=== PATIENT | male | born 1945 | race Hispanic/Latino ===

== ENCOUNTER 2020-06-04 10:53 | Inpatient (IN) | payer MEDICARE ==
[2020-06-05] MEDS: Atorvastatin Calcium 40 MG TAB PO SCH (20:54)
[2020-06-05] MEDS: Enoxaparin Sodium 40 MG/0.4 ML SYRINGE SC SCH (20:54)
[2020-06-05] MEDS: Zolpidem Tartrate 5 MG TAB PO PRN (20:54)
[2020-06-06] MEDS: Lisinopril 5 MG TAB PO SCH (08:13)
[2020-06-06] MEDS: Dexamethasone 4 MG TAB PO SCH (08:15)
[2020-06-06] MEDS: Aspirin 81 mg Enteric Coated Tablet PO SCH (08:16)
[2020-06-06] MEDS: Folic Acid 1 MG TAB PO SCH (08:16)
[2020-06-06] MEDS: Multivitamin W/ Minerals 1 TAB PO SCH (08:17)
[2020-06-06] MEDS ORDERED: FLU VACC QS2020-21(65YR UP)/PF 240 MCG/0.7 ML SYRINGE IM ONE (09:00)
[2020-06-06] MEDS: Atorvastatin Calcium 40 MG TAB PO SCH (21:16)
[2020-06-06] MEDS: Melatonin 3 MG TAB PO PRN (21:16)
[2020-06-06] MEDS: Enoxaparin Sodium 40 MG/0.4 ML SYRINGE SC SCH (21:17)
[2020-06-06] MEDS: Zolpidem Tartrate 5 MG TAB PO PRN (23:48)
[2020-06-07 05:10] LABS: #Lymphocytes 1.5 thou/uL (1.20-3.40); #Monocytes 1.2 thou/uL (0.11-0.59); #Neutrophils 10.1 thou/uL (1.40-6.50); %Basophils 0.3 % (0.0-1.0); %Eosinophils 0.1 % (0.0-10.0); %Lymphocytes 11.5 % (21.0-51.0); %Monocytes 9.4 % (0.0-10.0); %Neutrophils 78.6 % (42.0-75.0); Hemoglobin 18.1 g/dL (14.0-18.0); Mean Corpuscular HGB CONC 34.6 g/dL (32.0-36.0); Mean Corpuscular Hemoglobin 30.4 pg (27.0-31.0); Mean Corpuscular Volume 87.9 fL (78.0-98.0); Mean Platelet Volume 6.2 fL (7.4-10.4); Platelet Count 304 thou/uL (130-400); RBC Distribution Width 11.6 % (11.5-14.5); Red Blood Cell (RBC) Count 5.95 mill/uL (4.70-6.10); White Blood Cell (WBC) Count 12.8 thou/uL (4.8-10.8)
[2020-06-07 05:54] LABS: ALT (SGPT) 210 U/L (8-55); AST (SGOT) 164 U/L (5-34); Albumin 2.8 g/dL (3.4-4.8); Alkaline Phosphatase 206 U/L (40-110); Anion Gap 12 mmol/L (10-20); BUN (Urea Nitrogen) 29 mg/dL (8.4-25.7); Bilirubin, Total 1.1 mg/dL (0.2-1.2); Calc. Creatinine Clearance 73 mL/min (70-130); Calcium 8.9 mg/dL (7.8-10.44); Carbon Dioxide 26 mmol/L (23-31); Chloride 106 mmol/L (98-107); Globulin 4.3 g/dL (2.4-3.5); Glucose 96 mg/dL (83-110); Potassium 3.8 mmol/L (3.5-5.1); Protein, Total 7.1 g/dL (5.8-8.1); Sodium 140 mmol/L (136-145)
[2020-06-07] MEDS ORDERED: Sodium Chloride 0.9% 1,000 ML IV SCH (08:00)
[2020-06-07] MEDS: Dexamethasone 4 MG TAB PO SCH (09:16)
[2020-06-07] MEDS: Lisinopril 5 MG TAB PO SCH (09:17)
[2020-06-07] MEDS: Aspirin 81 mg Enteric Coated Tablet PO SCH (09:17)
[2020-06-07] MEDS: Multivitamin W/ Minerals 1 TAB PO SCH (09:17)
[2020-06-07] MEDS: Folic Acid 1 MG TAB PO SCH (09:17)
[2020-06-07 14:57] VITALS: BMI 20.1
[2020-06-07] MEDS: Enoxaparin Sodium 40 MG/0.4 ML SYRINGE SC SCH (20:41)
[2020-06-07] MEDS: Atorvastatin Calcium 40 MG TAB PO SCH (20:41)
[2020-06-07] MEDS: Melatonin 3 MG TAB PO PRN (20:41)
[2020-06-08] MEDS: Zolpidem Tartrate 5 MG TAB PO PRN (01:22)
[2020-06-08] MEDS: Multivitamin W/ Minerals 1 TAB PO SCH (08:16)
[2020-06-08] MEDS: Lisinopril 5 MG TAB PO SCH (08:16)
[2020-06-08] MEDS: Aspirin 81 mg Enteric Coated Tablet PO SCH (08:18)
[2020-06-08] MEDS: Folic Acid 1 MG TAB PO SCH (08:18)
[2020-06-08] MEDS: Melatonin 3 MG TAB PO PRN (20:58)
[2020-06-08] MEDS: Enoxaparin Sodium 40 MG/0.4 ML SYRINGE SC SCH (20:58)
[2020-06-08] MEDS: Atorvastatin Calcium 40 MG TAB PO SCH (20:58)
[2020-06-09] MEDS: Zolpidem Tartrate 5 MG TAB PO PRN ×2 (00:17→23:54)
[2020-06-09] MEDS: Aspirin 81 mg Enteric Coated Tablet PO SCH (07:50)
[2020-06-09] MEDS: Lisinopril 5 MG TAB PO SCH (07:50)
[2020-06-09] MEDS: Folic Acid 1 MG TAB PO SCH (07:50)
[2020-06-09] MEDS: Multivitamin W/ Minerals 1 TAB PO SCH (07:52)
[2020-06-09] MEDS: Enoxaparin Sodium 40 MG/0.4 ML SYRINGE SC SCH (20:27)
[2020-06-09] MEDS: Melatonin 3 MG TAB PO PRN (20:27)
[2020-06-09] MEDS: Atorvastatin Calcium 40 MG TAB PO SCH (20:28)
[2020-06-10 05:46] LABS: ALT (SGPT) 207 U/L (8-55); AST (SGOT) 141 U/L (5-34); Albumin 2.6 g/dL (3.4-4.8); Alkaline Phosphatase 192 U/L (40-110); Anion Gap 10 mmol/L (10-20); BUN (Urea Nitrogen) 18 mg/dL (8.4-25.7); Calc. Creatinine Clearance 73 mL/min (70-130); Calcium 8.4 mg/dL (7.8-10.44); Carbon Dioxide 25 mmol/L (23-31); Chloride 104 mmol/L (98-107); Globulin 3.9 g/dL (2.4-3.5); Glucose 86 mg/dL (83-110); Potassium 4.2 mmol/L (3.5-5.1); Protein, Total 6.5 g/dL (5.8-8.1); Sodium 135 mmol/L (136-145)
[2020-06-10 05:52] LABS: #Basophils 0.1 thou/uL (0.0-0.2); #Eosinphils 0.1 thou/uL (0.0-0.7); #Lymphocytes 1.7 thou/uL (1.20-3.40); #Neutrophils 6.3 thou/uL (1.40-6.50); %Eosinophils 1.5 % (0.0-10.0); %Lymphocytes 18.3 % (21.0-51.0); %Monocytes 10.4 % (0.0-10.0); %Neutrophils 68.8 % (42.0-75.0); Mean Corpuscular HGB CONC 33.4 g/dL (32.0-36.0); Mean Corpuscular Hemoglobin 29.9 pg (27.0-31.0); Mean Corpuscular Volume 89.5 fL (78.0-98.0); Mean Platelet Volume 6.4 fL (7.4-10.4); Platelet Count 271 thou/uL (130-400); RBC Distribution Width 11.9 % (11.5-14.5); Red Blood Cell (RBC) Count 6.01 mill/uL (4.70-6.10); White Blood Cell (WBC) Count 9.2 thou/uL (4.8-10.8)
[2020-06-10] MEDS: Folic Acid 1 MG TAB PO SCH (08:33)
[2020-06-10] MEDS: Lisinopril 5 MG TAB PO SCH (08:33)
[2020-06-10] MEDS: Aspirin 81 mg Enteric Coated Tablet PO SCH (08:33)
[2020-06-10] MEDS: Multivitamin W/ Minerals 1 TAB PO SCH (08:34)
[2020-06-10] MEDS ORDERED: Polyethylene Glycol 3350 17 GM Packet PO SCH (10:00)
[2020-06-10] MEDS ORDERED: Iopamidol 370 76% 100 ML VIAL ONE (12:38)
[2020-06-10] MEDS: Enoxaparin Sodium 40 MG/0.4 ML SYRINGE SC SCH (20:10)
[2020-06-10] MEDS: Atorvastatin Calcium 40 MG TAB PO SCH (20:10)
[2020-06-10] MEDS: Zolpidem Tartrate 5 MG TAB PO PRN (23:17)
[2020-06-11] MEDS: Folic Acid 1 MG TAB PO SCH (08:35)
[2020-06-11] MEDS: Polyethylene Glycol 3350 17 GM Packet PO SCH (08:35)
[2020-06-11] MEDS: Aspirin 81 mg Enteric Coated Tablet PO SCH (08:35)
[2020-06-11] MEDS: Multivitamin W/ Minerals 1 TAB PO SCH (08:35)
[2020-06-11] MEDS: Lisinopril 5 MG TAB PO SCH (08:35)
[2020-06-11] MEDS ORDERED: Bisacodyl 10 MG SUPP PR PRN (15:15)
[2020-06-11] MEDS: Atorvastatin Calcium 40 MG TAB PO SCH (21:24)
[2020-06-11] MEDS: Senokot S 8.6-50 MG TAB PO SCH (21:24)
[2020-06-11] MEDS: Enoxaparin Sodium 40 MG/0.4 ML SYRINGE SC SCH (21:24)
[2020-06-11] MEDS: Zolpidem Tartrate 5 MG TAB PO PRN (23:54)
[2020-06-12] MEDS: Aspirin 81 mg Enteric Coated Tablet PO SCH (08:52)
[2020-06-12] MEDS: Folic Acid 1 MG TAB PO SCH (08:52)
[2020-06-12] MEDS: Lisinopril 5 MG TAB PO SCH (08:53)
[2020-06-12] MEDS: Senokot S 8.6-50 MG TAB PO SCH ×2 (08:53→20:17)
[2020-06-12] MEDS: Polyethylene Glycol 3350 17 GM Packet PO SCH (08:54)
[2020-06-12] MEDS: Multivitamin W/ Minerals 1 TAB PO SCH (08:55)
[2020-06-12] MEDS: Atorvastatin Calcium 40 MG TAB PO SCH (20:17)
[2020-06-12] MEDS: Enoxaparin Sodium 40 MG/0.4 ML SYRINGE SC SCH (20:18)
[2020-06-12] MEDS: Zolpidem Tartrate 5 MG TAB PO PRN (22:18)
[2020-06-13 05:20] LABS: Hemoglobin 16.8 g/dL (14.0-18.0); Platelet Count 219 thou/uL (130-400)
[2020-06-13 05:42] LABS: Calc. Creatinine Clearance 70 mL/min (70-130)
[2020-06-13] MEDS: Senokot S 8.6-50 MG TAB PO SCH ×2 (09:14→21:41)
[2020-06-13] MEDS: Aspirin 81 mg Enteric Coated Tablet PO SCH (09:14)
[2020-06-13] MEDS: Lisinopril 5 MG TAB PO SCH (09:15)
[2020-06-13] MEDS: Multivitamin W/ Minerals 1 TAB PO SCH (09:15)
[2020-06-13] MEDS: Folic Acid 1 MG TAB PO SCH (09:15)
[2020-06-13] MEDS: Polyethylene Glycol 3350 17 GM Packet PO SCH (09:16)
[2020-06-13] MEDS: Atorvastatin Calcium 40 MG TAB PO SCH (21:41)
[2020-06-13] MEDS: Enoxaparin Sodium 40 MG/0.4 ML SYRINGE SC SCH (21:42)
[2020-06-13] MEDS: Zolpidem Tartrate 5 MG TAB PO PRN (21:53)
[2020-06-14] MEDS: Aspirin 81 mg Enteric Coated Tablet PO SCH (08:50)
[2020-06-14] MEDS: Folic Acid 1 MG TAB PO SCH (08:51)
[2020-06-14] MEDS: Lisinopril 5 MG TAB PO SCH (08:51)
[2020-06-14] MEDS: Multivitamin W/ Minerals 1 TAB PO SCH (08:52)
[2020-06-14] MEDS: Polyethylene Glycol 3350 17 GM Packet PO SCH (08:52)
[2020-06-14] MEDS: Senokot S 8.6-50 MG TAB PO SCH ×2 (08:52→20:14)
[2020-06-14] MEDS: Atorvastatin Calcium 40 MG TAB PO SCH (20:14)
[2020-06-14] MEDS: Enoxaparin Sodium 40 MG/0.4 ML SYRINGE SC SCH (20:14)
[2020-06-14] MEDS: Zolpidem Tartrate 5 MG TAB PO PRN (22:23)
[2020-06-15] MEDS: Aspirin 81 mg Enteric Coated Tablet PO SCH (08:22)
[2020-06-15] MEDS: Folic Acid 1 MG TAB PO SCH (08:22)
[2020-06-15] MEDS: Senokot S 8.6-50 MG TAB PO SCH ×2 (08:22→20:51)
[2020-06-15] MEDS: Polyethylene Glycol 3350 17 GM Packet PO SCH (08:22)
[2020-06-15] MEDS: Multivitamin W/ Minerals 1 TAB PO SCH (08:22)
[2020-06-15] MEDS: Lisinopril 5 MG TAB PO SCH (08:23)
[2020-06-15] MEDS: Atorvastatin Calcium 40 MG TAB PO SCH (20:51)
[2020-06-15] MEDS: Enoxaparin Sodium 40 MG/0.4 ML SYRINGE SC SCH (20:51)
[2020-06-15] MEDS: Zolpidem Tartrate 5 MG TAB PO PRN (23:18)
[2020-06-16 06:25] LABS: Hemoglobin 17.7 g/dL (14.0-18.0); Platelet Count 159 thou/uL (130-400)
[2020-06-16 06:36] LABS: Calc. Creatinine Clearance 77 mL/min (70-130)
[2020-06-16] MEDS: Polyethylene Glycol 3350 17 GM Packet PO SCH (08:36)
[2020-06-16] MEDS: Lisinopril 5 MG TAB PO SCH (08:38)
[2020-06-16] MEDS: Senokot S 8.6-50 MG TAB PO SCH ×2 (08:38→21:00)
[2020-06-16] MEDS: Aspirin 81 mg Enteric Coated Tablet PO SCH (08:38)
[2020-06-16] MEDS: Multivitamin W/ Minerals 1 TAB PO SCH (08:39)
[2020-06-16] MEDS: Folic Acid 1 MG TAB PO SCH (08:39)
[2020-06-16] MEDS: Atorvastatin Calcium 40 MG TAB PO SCH (21:00)
[2020-06-16] MEDS ORDERED: Enoxaparin Sodium 100 MG/ML SYRINGE SC SCH (21:00)
[2020-06-16] MEDS: Zolpidem Tartrate 5 MG TAB PO PRN (21:52)
[2020-06-17 05:37] LABS: #Basophils 0.1 thou/uL (0.0-0.2); #Eosinphils 0.3 thou/uL (0.0-0.7); #Lymphocytes 1.8 thou/uL (1.20-3.40); #Monocytes 0.8 thou/uL (0.11-0.59); #Neutrophils 5.2 thou/uL (1.40-6.50); %Basophils 1.3 % (0.0-1.0); %Eosinophils 3.8 % (0.0-10.0); %Lymphocytes 21.3 % (21.0-51.0); %Neutrophils 63.6 % (42.0-75.0); Hemoglobin 16.6 g/dL (14.0-18.0); Mean Corpuscular HGB CONC 34.7 g/dL (32.0-36.0); Mean Corpuscular Hemoglobin 30.4 pg (27.0-31.0); Mean Corpuscular Volume 87.7 fL (78.0-98.0); Mean Platelet Volume 6.1 fL (7.4-10.4); Platelet Count 179 thou/uL (130-400); Red Blood Cell (RBC) Count 5.46 mill/uL (4.70-6.10); White Blood Cell (WBC) Count 8.2 thou/uL (4.8-10.8)
[2020-06-17 05:41] LABS: ALT (SGPT) 56 U/L (8-55); AST (SGOT) 43 U/L (5-34); Albumin 2.7 g/dL (3.4-4.8); Alkaline Phosphatase 150 U/L (40-110); Anion Gap 15 mmol/L (10-20); BUN (Urea Nitrogen) 20 mg/dL (8.4-25.7); Bilirubin, Total 1.2 mg/dL (0.2-1.2); Calc. Creatinine Clearance 73 mL/min (70-130); Calcium 8.8 mg/dL (7.8-10.44); Carbon Dioxide 25 mmol/L (23-31); Chloride 101 mmol/L (98-107); Globulin 4.2 g/dL (2.4-3.5); Glucose 86 mg/dL (83-110); Potassium 3.6 mmol/L (3.5-5.1); Protein, Total 6.9 g/dL (5.8-8.1); Sodium 137 mmol/L (136-145)
[2020-06-17] MEDS: Folic Acid 1 MG TAB PO SCH (09:30)
[2020-06-17] MEDS: Aspirin 81 mg Enteric Coated Tablet PO SCH (09:30)
[2020-06-17] MEDS: Lisinopril 5 MG TAB PO SCH (09:30)
[2020-06-17] MEDS: Polyethylene Glycol 3350 17 GM Packet PO SCH (09:30)
[2020-06-17] MEDS: Senokot S 8.6-50 MG TAB PO SCH ×2 (09:30→20:57)
[2020-06-17] MEDS: Multivitamin W/ Minerals 1 TAB PO SCH (09:30)
[2020-06-17] MEDS: Atorvastatin Calcium 40 MG TAB PO SCH (20:57)
[2020-06-17] MEDS: Enoxaparin Sodium 40 MG/0.4 ML SYRINGE SC SCH (21:02)
[2020-06-17] MEDS: Zolpidem Tartrate 5 MG TAB PO PRN (22:08)
[2020-06-18] MEDS: Lisinopril 5 MG TAB PO SCH (08:40)
[2020-06-18] MEDS: Aspirin 81 mg Enteric Coated Tablet PO SCH (08:40)
[2020-06-18] MEDS: Polyethylene Glycol 3350 17 GM Packet PO SCH (08:40)
[2020-06-18] MEDS: Senokot S 8.6-50 MG TAB PO SCH ×2 (08:40→20:20)
[2020-06-18] MEDS: Multivitamin W/ Minerals 1 TAB PO SCH (08:41)
[2020-06-18] MEDS: Megestrol Acetate 40 MG TAB PO SCH ×2 (08:41→20:20)
[2020-06-18] MEDS: Folic Acid 1 MG TAB PO SCH (08:42)
[2020-06-18] MEDS: Ibuprofen 600 MG TAB PO PRN (18:22)
[2020-06-18] MEDS: Atorvastatin Calcium 40 MG TAB PO SCH (20:20)
[2020-06-18] MEDS: Enoxaparin Sodium 40 MG/0.4 ML SYRINGE SC SCH (20:20)
[2020-06-18] MEDS: Zolpidem Tartrate 5 MG TAB PO PRN (23:40)
[2020-06-19 04:51] LABS: Hemoglobin 16.3 g/dL (14.0-18.0); Platelet Count 177 thou/uL (130-400)
[2020-06-19 05:07] LABS: Calc. Creatinine Clearance 65 mL/min (70-130)
[2020-06-19] MEDS: Aspirin 81 mg Enteric Coated Tablet PO SCH (08:42)
[2020-06-19] MEDS: Polyethylene Glycol 3350 17 GM Packet PO SCH (08:42)
[2020-06-19] MEDS: Lisinopril 5 MG TAB PO SCH (08:42)
[2020-06-19] MEDS: Senokot S 8.6-50 MG TAB PO SCH ×2 (08:42→20:27)
[2020-06-19] MEDS: Folic Acid 1 MG TAB PO SCH (08:49)
[2020-06-19] MEDS: Megestrol Acetate 40 MG TAB PO SCH ×2 (08:49→20:27)
[2020-06-19] MEDS: Multivitamin W/ Minerals 1 TAB PO SCH (08:49)
[2020-06-19] MEDS: Ibuprofen 600 MG TAB PO PRN (12:24)
[2020-06-19] MEDS: Atorvastatin Calcium 40 MG TAB PO SCH (20:27)
[2020-06-19] MEDS: Enoxaparin Sodium 40 MG/0.4 ML SYRINGE SC SCH (20:28)
[2020-06-19] MEDS: Zolpidem Tartrate 5 MG TAB PO PRN (23:18)
[2020-06-20] MEDS: Ibuprofen 600 MG TAB PO PRN ×3 (02:12→20:38)
[2020-06-20] MEDS: Aspirin 81 mg Enteric Coated Tablet PO SCH (09:00)
[2020-06-20] MEDS: Folic Acid 1 MG TAB PO SCH (09:00)
[2020-06-20] MEDS: Polyethylene Glycol 3350 17 GM Packet PO SCH (09:00)
[2020-06-20] MEDS: Megestrol Acetate 40 MG TAB PO SCH ×2 (09:00→20:38)
[2020-06-20] MEDS: Lisinopril 5 MG TAB PO SCH (09:01)
[2020-06-20] MEDS: Multivitamin W/ Minerals 1 TAB PO SCH (09:01)
[2020-06-20] MEDS: Senokot S 8.6-50 MG TAB PO SCH ×2 (09:05→20:38)
[2020-06-20] MEDS: Atorvastatin Calcium 40 MG TAB PO SCH (20:38)
[2020-06-20] MEDS: Enoxaparin Sodium 40 MG/0.4 ML SYRINGE SC SCH (20:39)
[2020-06-21] MEDS: Zolpidem Tartrate 5 MG TAB PO PRN (01:47)
[2020-06-21] MEDS: Aspirin 81 mg Enteric Coated Tablet PO SCH (08:44)
[2020-06-21] MEDS: Polyethylene Glycol 3350 17 GM Packet PO SCH (08:44)
[2020-06-21] MEDS: Fluconazole 100 MG TAB PO SCH (08:44)
[2020-06-21] MEDS: Megestrol Acetate 40 MG TAB PO SCH ×2 (08:45→21:15)
[2020-06-21] MEDS: Multivitamin W/ Minerals 1 TAB PO SCH (08:45)
[2020-06-21] MEDS: Lisinopril 5 MG TAB PO SCH (08:45)
[2020-06-21] MEDS: Folic Acid 1 MG TAB PO SCH (08:45)
[2020-06-21] MEDS: Senokot S 8.6-50 MG TAB PO SCH ×2 (08:45→21:15)
[2020-06-21] MEDS: Nystatin Cream 15 GM TUBE TOP SCH ×2 (08:46→21:16)
[2020-06-21] MEDS: Ibuprofen 600 MG TAB PO PRN (11:28)
[2020-06-21 13:30] LABS: Bilirubin Moderate (Negative); Blood, Urine Negative (Negative); Clarity Cloudy (Clear); Glucose, Urine (Dipstick) 100 mg/dL (Negative); Ketone, Urine Trace mg/dL (Negative); Leukocyte Small (Negative); Nitrite Negative (Negative); Protein, Urine (Dipstick) 30 mg/dL (Neg-Trace); Urobilinogen > or = 8.0 mg/dL (Less than 2); pH, Urine 5.5 (5.0-9.0)
[2020-06-21 13:38] LABS: RBC/HPF 0-3 HPF (0-3); Squamous Epithelial 0-3 HPF (0-3)
[2020-06-21 13:39] LABS: Bacteria/HPF 2+ HPF (None Seen)
[2020-06-21 13:40] LABS: Urine Culture Reflex Yes Yes
[2020-06-21] MEDS: Enoxaparin Sodium 40 MG/0.4 ML SYRINGE SC SCH (21:15)
[2020-06-21] MEDS: Melatonin 3 MG TAB PO PRN (21:15)
[2020-06-21] MEDS: Atorvastatin Calcium 40 MG TAB PO SCH (21:15)
[2020-06-22] MEDS: Zolpidem Tartrate 5 MG TAB PO PRN (00:34)
[2020-06-22 05:41] LABS: Hemoglobin 17.3 g/dL (14.0-18.0); Platelet Count 196 thou/uL (130-400)
[2020-06-22] MEDS: Multivitamin W/ Minerals 1 TAB PO SCH (09:28)
[2020-06-22] MEDS: Aspirin 81 mg Enteric Coated Tablet PO SCH (09:28)
[2020-06-22] MEDS: Folic Acid 1 MG TAB PO SCH (09:29)
[2020-06-22] MEDS: Fluconazole 100 MG TAB PO SCH (09:29)
[2020-06-22] MEDS: Senokot S 8.6-50 MG TAB PO SCH ×2 (09:29→22:02)
[2020-06-22] MEDS: Polyethylene Glycol 3350 17 GM Packet PO SCH (09:29)
[2020-06-22] MEDS: Megestrol Acetate 40 MG TAB PO SCH ×2 (09:29→22:02)
[2020-06-22] MEDS: Nystatin Cream 15 GM TUBE TOP SCH ×2 (09:30→22:04)
[2020-06-22] MEDS: Lisinopril 5 MG TAB PO SCH (09:30)
[2020-06-22] MEDS: Atorvastatin Calcium 40 MG TAB PO SCH (22:02)
[2020-06-22] MEDS: Enoxaparin Sodium 40 MG/0.4 ML SYRINGE SC SCH (22:02)
[2020-06-22] MEDS: Melatonin 3 MG TAB PO PRN (22:02)
[2020-06-23] MEDS: Zolpidem Tartrate 5 MG TAB PO PRN (00:58)
[2020-06-23] MEDS: Senokot S 8.6-50 MG TAB PO SCH ×2 (08:47→21:19)
[2020-06-23] MEDS: Multivitamin W/ Minerals 1 TAB PO SCH (08:47)
[2020-06-23] MEDS: Polyethylene Glycol 3350 17 GM Packet PO SCH (08:47)
[2020-06-23] MEDS: Lisinopril 5 MG TAB PO SCH (08:48)
[2020-06-23] MEDS: Folic Acid 1 MG TAB PO SCH (08:49)
[2020-06-23] MEDS: Nystatin Cream 15 GM TUBE TOP SCH ×2 (08:49→21:20)
[2020-06-23] MEDS: Aspirin 81 mg Enteric Coated Tablet PO SCH (08:49)
[2020-06-23] MEDS: Megestrol Acetate 40 MG TAB PO SCH ×2 (08:49→21:19)
[2020-06-23] MEDS: Fluconazole 100 MG TAB PO SCH (08:49)
[2020-06-23] MEDS: Sodium Chloride 0.9% 1,000 ML IV SCH ×4 (13:35→21:19)
[2020-06-23] MEDS: Sulfameth/Trimethoprim DS 800-160mg TAB PO SCH ×2 (13:36→21:19)
[2020-06-23] MEDS: Melatonin 3 MG TAB PO PRN (21:19)
[2020-06-23] MEDS: Atorvastatin Calcium 40 MG TAB PO SCH (21:19)
[2020-06-23] MEDS: Enoxaparin Sodium 40 MG/0.4 ML SYRINGE SC SCH (21:19)
[2020-06-24] MEDS: Zolpidem Tartrate 5 MG TAB PO PRN ×2 (01:02→21:32)
[2020-06-24] MEDS: Sodium Chloride 0.9% 1,000 ML IV SCH ×2 (08:00→18:32)
[2020-06-24] MEDS ORDERED: Fluconazole 100 MG TAB ONE (08:43)
[2020-06-24] MEDS ORDERED: Sulfameth/Trimethoprim DS 800-160mg TAB ONE (08:43)
[2020-06-24] MEDS ORDERED: Aspirin 81 mg Enteric Coated Tablet ONE (08:44)
[2020-06-24] MEDS ORDERED: Atorvastatin Calcium 40 MG TAB ONE (08:44)
[2020-06-24] MEDS ORDERED: Folic Acid 1 MG TAB ONE (08:44)
[2020-06-24] MEDS ORDERED: Enoxaparin Sodium 40 MG/0.4 ML SYRINGE ONE (08:45)
[2020-06-24] MEDS ORDERED: Polyethylene Glycol 3350 17 GM Packet ONE (08:45)
[2020-06-24] MEDS ORDERED: Megestrol Acetate 40 MG TAB ONE (08:45)
[2020-06-24] MEDS ORDERED: Senokot S 8.6-50 MG TAB ONE (08:49)
[2020-06-24] MEDS ORDERED: Lisinopril 5 MG TAB ONE (08:50)
[2020-06-24] MEDS ORDERED: Multivitamin W/ Minerals 1 TAB ONE (08:50)
[2020-06-24] MEDS: Senokot S 8.6-50 MG TAB PO SCH ×2 (09:30→20:20)
[2020-06-24] MEDS: Folic Acid 1 MG TAB PO SCH (09:30)
[2020-06-24] MEDS: Polyethylene Glycol 3350 17 GM Packet PO SCH (09:30)
[2020-06-24] MEDS: Nystatin Cream 15 GM TUBE TOP SCH ×2 (09:30→20:20)
[2020-06-24] MEDS: Sulfameth/Trimethoprim DS 800-160mg TAB PO SCH ×2 (09:30→20:18)
[2020-06-24] MEDS: Aspirin 81 mg Enteric Coated Tablet PO SCH (09:30)
[2020-06-24] MEDS: Lisinopril 5 MG TAB PO SCH (09:30)
[2020-06-24] MEDS: Multivitamin W/ Minerals 1 TAB PO SCH (09:30)
[2020-06-24] MEDS: Megestrol Acetate 40 MG TAB PO SCH ×2 (09:30→20:19)
[2020-06-24] MEDS: Fluconazole 100 MG TAB PO SCH (09:30)
[2020-06-24 14:17] LABS: Anion Gap 14 mmol/L (10-20); BUN (Urea Nitrogen) 29 mg/dL (8.4-25.7); Calc. Creatinine Clearance 46 mL/min (70-130); Carbon Dioxide 22 mmol/L (23-31); Chloride 104 mmol/L (98-107); Potassium 3.6 mmol/L (3.5-5.1); Sodium 136 mmol/L (136-145)
[2020-06-24 14:18] LABS: Calcium 8.4 mg/dL (7.8-10.44); Glucose 75 mg/dL (83-110)
[2020-06-24 14:20] LABS: Albumin 2.5 g/dL (3.4-4.8); Bilirubin, Total 1.4 mg/dL (0.2-1.2); Protein, Total 6.5 g/dL (5.8-8.1)
[2020-06-24 14:21] LABS: ALT (SGPT) 76 U/L (8-55); AST (SGOT) 65 U/L (5-34); Alkaline Phosphatase 262 U/L (40-110)
[2020-06-24 14:22] LABS: Hemoglobin 16.1 g/dL (14.0-18.0); Mean Corpuscular HGB CONC 32.8 g/dL (32.0-36.0); Mean Corpuscular Hemoglobin 29.2 pg (27.0-31.0); Mean Corpuscular Volume 88.8 fL (78.0-98.0); Red Blood Cell (RBC) Count 5.52 mill/uL (4.70-6.10); White Blood Cell (WBC) Count 7.1 thou/uL (4.8-10.8)
[2020-06-24 14:23] LABS: %Lymphocytes 29.7 % (21.0-51.0); %Monocytes 8.5 % (0.0-10.0); %Neutrophils 54.5 % (42.0-75.0); Manual Diff?? YES; Platelet Count 214 thou/uL (130-400); RBC Distribution Width 12.7 % (11.5-14.5)
[2020-06-24 14:24] LABS: #Basophils 0.1 thou/uL (0.0-0.2); #Eosinphils 0.4 thou/uL (0.0-0.7); #Monocytes 0.6 thou/uL (0.11-0.59); #Neutrophils 3.9 thou/uL (1.40-6.50); %Basophils 1.3 % (0.0-1.0); MDiff Complete? YES
[2020-06-24 14:40] LABS: #Lymphocytes 2.1 thou/uL (1.20-3.40); Mean Platelet Volume 6.6 fL (7.4-10.4)
[2020-06-24] MEDS: Atorvastatin Calcium 40 MG TAB PO SCH (20:18)
[2020-06-24] MEDS: Enoxaparin Sodium 40 MG/0.4 ML SYRINGE SC SCH (20:19)
[2020-06-25] MEDS: Sodium Chloride 0.9% 1,000 ML IV SCH ×2 (04:55→17:38)
[2020-06-25 05:06] LABS: Hemoglobin 14.2 g/dL (14.0-18.0); Platelet Count 201 thou/uL (130-400)
[2020-06-25 05:13] LABS: Calc. Creatinine Clearance 64 mL/min (70-130)
[2020-06-25] MEDS: Polyethylene Glycol 3350 17 GM Packet PO SCH (08:30)
[2020-06-25] MEDS: Senokot S 8.6-50 MG TAB PO SCH ×2 (08:31→20:40)
[2020-06-25] MEDS: Folic Acid 1 MG TAB PO SCH (08:32)
[2020-06-25] MEDS: Aspirin 81 mg Enteric Coated Tablet PO SCH (08:32)
[2020-06-25] MEDS: Megestrol Acetate 40 MG TAB PO SCH ×2 (08:32→20:40)
[2020-06-25] MEDS: Sulfameth/Trimethoprim DS 800-160mg TAB PO SCH ×2 (08:32→20:40)
[2020-06-25] MEDS: Fluconazole 100 MG TAB PO SCH (08:33)
[2020-06-25] MEDS: Lisinopril 5 MG TAB PO SCH (08:33)
[2020-06-25] MEDS: Multivitamin W/ Minerals 1 TAB PO SCH (08:33)
[2020-06-25] MEDS: Nystatin Cream 15 GM TUBE TOP SCH ×2 (10:37→20:42)
[2020-06-25] MEDS: Atorvastatin Calcium 40 MG TAB PO SCH (20:40)
[2020-06-25] MEDS: Enoxaparin Sodium 40 MG/0.4 ML SYRINGE SC SCH (20:41)
[2020-06-26] MEDS: Zolpidem Tartrate 5 MG TAB PO PRN ×2 (00:27→23:22)
[2020-06-26] MEDS: Lisinopril 5 MG TAB PO SCH (08:53)
[2020-06-26] MEDS: Sulfameth/Trimethoprim DS 800-160mg TAB PO SCH ×2 (08:53→21:39)
[2020-06-26] MEDS: Megestrol Acetate 40 MG TAB PO SCH ×2 (08:53→21:39)
[2020-06-26] MEDS: Multivitamin W/ Minerals 1 TAB PO SCH (08:53)
[2020-06-26] MEDS: Aspirin 81 mg Enteric Coated Tablet PO SCH (08:53)
[2020-06-26] MEDS: Polyethylene Glycol 3350 17 GM Packet PO SCH (08:54)
[2020-06-26] MEDS: Nystatin Cream 15 GM TUBE TOP SCH ×2 (08:54→21:41)
[2020-06-26] MEDS: Senokot S 8.6-50 MG TAB PO SCH ×2 (08:54→21:41)
[2020-06-26] MEDS: Folic Acid 1 MG TAB PO SCH (08:54)
[2020-06-26] MEDS: Fluconazole 100 MG TAB PO SCH (08:54)
[2020-06-26] MEDS: Melatonin 3 MG TAB PO PRN (21:40)
[2020-06-26] MEDS: Atorvastatin Calcium 40 MG TAB PO SCH (21:40)
[2020-06-26] MEDS: Enoxaparin Sodium 40 MG/0.4 ML SYRINGE SC SCH (21:40)
[2020-06-27] MEDS: Lisinopril 5 MG TAB PO SCH (09:17)
[2020-06-27] MEDS: Polyethylene Glycol 3350 17 GM Packet PO SCH (09:17)
[2020-06-27] MEDS: Aspirin 81 mg Enteric Coated Tablet PO SCH (09:17)
[2020-06-27] MEDS: Multivitamin W/ Minerals 1 TAB PO SCH (09:17)
[2020-06-27] MEDS: Sulfameth/Trimethoprim DS 800-160mg TAB PO SCH ×2 (09:17→21:09)
[2020-06-27] MEDS: Fluconazole 100 MG TAB PO SCH (09:18)
[2020-06-27] MEDS: Megestrol Acetate 40 MG TAB PO SCH ×2 (09:18→21:09)
[2020-06-27] MEDS: Folic Acid 1 MG TAB PO SCH (09:18)
[2020-06-27] MEDS: Senokot S 8.6-50 MG TAB PO SCH ×2 (09:19→21:13)
[2020-06-27] MEDS: Nystatin Cream 15 GM TUBE TOP SCH ×2 (09:19→21:10)
[2020-06-27] MEDS: Enoxaparin Sodium 40 MG/0.4 ML SYRINGE SC SCH (21:08)
[2020-06-27] MEDS: Atorvastatin Calcium 40 MG TAB PO SCH ×2 (21:09→21:14)
[2020-06-27] MEDS: Zolpidem Tartrate 5 MG TAB PO PRN (23:04)
[2020-06-28 05:30] LABS: Calc. Creatinine Clearance 68 mL/min (70-130)
[2020-06-28 05:51] LABS: Hemoglobin 13.9 g/dL (14.0-18.0); Platelet Count 231 thou/uL (130-400)
[2020-06-28] MEDS: Polyethylene Glycol 3350 17 GM Packet PO SCH (10:23)
[2020-06-28] MEDS: Lisinopril 5 MG TAB PO SCH (10:24)
[2020-06-28] MEDS: Sulfameth/Trimethoprim DS 800-160mg TAB PO SCH ×2 (10:25→20:59)
[2020-06-28] MEDS: Megestrol Acetate 40 MG TAB PO SCH ×2 (10:25→20:59)
[2020-06-28] MEDS: Aspirin 81 mg Enteric Coated Tablet PO SCH (10:25)
[2020-06-28] MEDS: Folic Acid 1 MG TAB PO SCH (10:26)
[2020-06-28] MEDS: Senokot S 8.6-50 MG TAB PO SCH ×2 (10:26→20:59)
[2020-06-28] MEDS: Nystatin Cream 15 GM TUBE TOP SCH ×2 (10:26→21:01)
[2020-06-28] MEDS: Multivitamin W/ Minerals 1 TAB PO SCH (10:26)
[2020-06-28] MEDS: Enoxaparin Sodium 40 MG/0.4 ML SYRINGE SC SCH (20:59)
[2020-06-28] MEDS: Atorvastatin Calcium 40 MG TAB PO SCH (23:36)
[2020-06-28] MEDS: Zolpidem Tartrate 5 MG TAB PO PRN (23:36)
[2020-06-29] MEDS: Lisinopril 5 MG TAB PO SCH (08:28)
[2020-06-29] MEDS: Polyethylene Glycol 3350 17 GM Packet PO SCH (08:28)
[2020-06-29] MEDS: Multivitamin W/ Minerals 1 TAB PO SCH (08:29)
[2020-06-29] MEDS: Aspirin 81 mg Enteric Coated Tablet PO SCH (08:29)
[2020-06-29] MEDS: Senokot S 8.6-50 MG TAB PO SCH ×2 (08:30→21:37)
[2020-06-29] MEDS: Megestrol Acetate 40 MG TAB PO SCH ×2 (08:30→21:37)
[2020-06-29] MEDS: Folic Acid 1 MG TAB PO SCH (08:30)
[2020-06-29] MEDS: Sulfameth/Trimethoprim DS 800-160mg TAB PO SCH ×2 (08:30→21:36)
[2020-06-29] MEDS: Nystatin Cream 15 GM TUBE TOP SCH ×2 (08:31→21:38)
[2020-06-29] MEDS: Atorvastatin Calcium 40 MG TAB PO SCH (21:36)
[2020-06-29] MEDS: Enoxaparin Sodium 40 MG/0.4 ML SYRINGE SC SCH (21:37)
[2020-06-29] MEDS: Zolpidem Tartrate 5 MG TAB PO PRN (23:07)
[2020-06-30] MEDS: Polyethylene Glycol 3350 17 GM Packet PO SCH (09:31)
[2020-06-30] MEDS: Lisinopril 5 MG TAB PO SCH (09:32)
[2020-06-30] MEDS: Megestrol Acetate 40 MG TAB PO SCH ×2 (09:32→21:38)
[2020-06-30] MEDS: Multivitamin W/ Minerals 1 TAB PO SCH (09:33)
[2020-06-30] MEDS: Senokot S 8.6-50 MG TAB PO SCH ×2 (09:33→21:38)
[2020-06-30] MEDS: Aspirin 81 mg Enteric Coated Tablet PO SCH (09:33)
[2020-06-30] MEDS: Folic Acid 1 MG TAB PO SCH (09:34)
[2020-06-30] MEDS: Sulfameth/Trimethoprim DS 800-160mg TAB PO SCH (09:34)
[2020-06-30] MEDS: Nystatin Cream 15 GM TUBE TOP SCH ×2 (09:34→21:39)
[2020-06-30] MEDS: Atorvastatin Calcium 40 MG TAB PO SCH (21:38)
[2020-06-30] MEDS: Enoxaparin Sodium 40 MG/0.4 ML SYRINGE SC SCH (21:38)
[2020-06-30] MEDS: Melatonin 3 MG TAB PO PRN (21:38)
[2020-06-30] MEDS: Zolpidem Tartrate 5 MG TAB PO PRN (23:04)
[2020-07-01 04:43] VITALS: BP 100/55; TEMP 97.1
[2020-07-01 05:01] LABS: Hemoglobin 14.8 g/dL (14.0-18.0); Platelet Count 279 thou/uL (130-400)
[2020-07-01 05:13] LABS: Calc. Creatinine Clearance 69 mL/min (70-130)
[2020-07-01] MEDS: Senokot S 8.6-50 MG TAB PO SCH (08:39)
[2020-07-01] MEDS: Multivitamin W/ Minerals 1 TAB PO SCH (08:39)
[2020-07-01] MEDS: Aspirin 81 mg Enteric Coated Tablet PO SCH (08:39)
[2020-07-01] MEDS: Lisinopril 5 MG TAB PO SCH (08:39)
[2020-07-01] MEDS: Megestrol Acetate 40 MG TAB PO SCH (08:40)
[2020-07-01] MEDS: Folic Acid 1 MG TAB PO SCH (08:40)
[2020-07-01] MEDS: Nystatin Cream 15 GM TUBE TOP SCH (08:40)
[2020-07-01] MEDS: Polyethylene Glycol 3350 17 GM Packet PO SCH (08:41)
== END 2020-07-01 12:30 | disposition home health service (06) | DRG 947 ==
LOC: BURMED 06-05 15:40
PROVIDERS: ADMIT Family Medicine; ATTEND Family Medicine
DX: R53.81 Other malaise (principal); U07.1 COVID-19; J12.82 Pneumonia due to coronavirus disease 2019; N39.0 Urinary tract infection, site not specified; R09.02 Hypoxemia; I25.10 Atherosclerotic heart disease of native coronary artery without angina pectoris; G47.00 Insomnia, unspecified; I10 Essential (primary) hypertension; Z95.1 Presence of aortocoronary bypass graft; K59.00 Constipation, unspecified; Z83.3 Family history of diabetes mellitus; Z82.49 Family history of ischemic heart disease and other diseases of the circulatory system; L60.3 Nail dystrophy; E78.5 Hyperlipidemia, unspecified; Z79.82 Long term (current) use of aspirin; Z79.899 Other long term (current) drug therapy
CPT/HCPCS: 36415; 74177; 80053; 81001; 82565; 85014; 85018; 85025; 85049; 87086; J1650; J7050; J8540; Q9967; S0179